=== PATIENT | female | born 1965 | race Caucasian/White ===

== ENCOUNTER 2018-12-21 16:42 | Emergency (ER) | payer OTHER ==
[~2018-12-21] VITALS: Ht 160 cm; Wt 79.4 kg
[~2018-12-21 16:42] MED LIST: CELEXA20 MG PO; ESTRADIOL0.5 MG PO; TRAZODONE HCL50 MG PO; WELLBUTRIN XL150 MG PO
[2018-12-21] MEDS ORDERED: VENTOLIN HFA18 GM INH (17:26)
[2018-12-21] MEDS ORDERED: NORCO 5-325 TA1 EACH PO (19:53)
[2018-12-21] MEDS ORDERED: ZOFRAN4 MG PO (19:53)
== END 2018-12-21 20:00 | disposition home or self-care (01) ==
LOC: ED 16:42
DX: R10.32 Left lower quadrant pain (principal); R10.31 Right lower quadrant pain; R10.13 Epigastric pain; Z79.899 Other long term (current) drug therapy
CPT/HCPCS: 74022; 74177; 80053; 81001; 83690; 84703; 85025; 99284-25; Q9967

== ENCOUNTER 2020-07-03 15:36 | Emergency (ER) | payer OTHER ==
[~2020-07-03] VITALS: Ht 160 cm; Wt 79.4 kg
[~2020-07-03 15:36] MED LIST changes: +NORCO 5-325 TA1 EACH PO; +VENTOLIN HFA18 GM INH; +ZOFRAN4 MG PO
[2020-07-03] MEDS ORDERED: NORCO 5-325 TA1 EACH PO (17:28)
== END 2020-07-03 17:45 | disposition home or self-care (01) ==
LOC: ED 15:36
DX: K59.00 Constipation, unspecified (principal); F32.9 Major depressive disorder, single episode, unspecified; Z79.899 Other long term (current) drug therapy
CPT/HCPCS: 74176; 80053; 81001; 83690; 85025; 96374; 96375; 99284-25; J1885; J2405; J7030